=== PATIENT | male | born 1945 | race Caucasian/White ===

== ENCOUNTER 2021-01-20 11:05 | Emergency (ER) | payer MEDICARE ==
[2021-01-20] MEDS ORDERED: BUFFERED LIDOCAINE 10 ML SYRINGE SUBQ STA (11:53)
[2021-01-20] MEDS ORDERED: BUPIVACAINE 0.5% PF 10 ML VIAL SUBQ STA (11:54)
--- NOTE | 2021-01-20 12:22 | XRAY Report ---
PROCEDURE: Hand 3 View LT INDICATIONS: ? FB metalic TECHNIQUE: 3 views of the hand(s) acquired. COMPARISON: None FINDINGS: Bones: No fractures or dislocations. No suspicious bony lesions. Focal degenerative change is seen involving the carpometacarpal joint, with milder degenerative richardson es seen elsewhere. Soft tissues: At the site of clinical concern adjacent to the interphalangeal joint of the thumb, th ere is a linear metallic-appearing foreign body that measures up to 5 mm. Generalized soft tissue swe lling is seen. No suspicious soft tissue calcifications. IMPRESSION: 5 mm linear metallic appearing foreign body seen at the area of clinical concern adjacent to the inte rphalangeal joint of the thumb. Reviewed by: Martinez Alves MD on 01/20/2021 11:20 AM BRYANNA Approved by: Martinez Alves MD on 01/20/2021 11:20 AM BRYANNA Station ID: [id number]
--- NOTE | 2021-01-20 13:35 | ED Physician Documentation ---
PD HPI UPPER EXT INJURY - Stated complaint Stated Complaint: L HAND SWELLING - Chief complaint Chief Complaint: Ext Problem - History obtained from History obtained from: Patient - History of Present Illness Location: Left, Finger (thumb) Type of injury: Foreign body Where injury occurred: Work Timing - onset: How many days ago (3) Timing - duration: Days (3) Timing - details: Gradual onset, Still present Improved by: Rest Worsened by: Moving, Palpating Associated symptoms: Swelling Contributing factors: No: Anticoagulated Similar symptoms before: Diagnosis (FB) Recently seen: Not recently seen - Additonal information Additional information: 75-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 He has not had any drainage from the area and he is not able to see the foreign body. He has had a number of metallic foreign bodies in his hands previously. He usually does not have to go after them and he does not usually have any swelling associated with them. Today he has both swelling and pain without fever or lymphangitic streaking. Review of Systems Constitutional: denies: Fever Eyes: denies: Photophobia Ears: denies: Ear pain Nose: denies: Congestion Throat: denies: Sore throat Respiratory: denies: Cough GI: denies: Vomiting Skin: denies: Rash Musculoskeletal: reports: Extremity pain PD PAST MEDICAL HISTORY - Past Medical History Past Medical History: No - Past Surgical History Past Surgical History: Yes Ortho: Hip replacement, Knee replacement, Other - Present Medications Home Medications: Ambulatory Orders Medication Instructions Recorded Confirmed Hydrocodone/Acetaminophen 1 tab PO Q6HR PRN 01/20/21 01/20/21 [Hydrocodone-Acetamin 5-300 mg] Ibuprofen 500 mg PO BID PRN 01/20/21 01/20/21 Oxycodone HCl/Acetaminophen 1 - 2 each PO Q6H PRN #14 tablet 01/20/21 [Percocet 5-325 mg Tablet] cephALEXin [Keflex] 500 mg PO Q6H #28 cap 01/20/21 - Allergies Allergies/Adverse Reactions: Allergies Allergy/AdvReac Type Severity Reaction Status Date / Time No Known Drug Allergies Allergy Verified 01/20/21 11:20 - Social History Does the pt smoke?: No Smoking Status: Never smoker Does the pt drink ETOH?: No Does the pt have substance abuse?: No - Immunizations Immunizations are current?: No Immunizations: TDAP >10years/unknown PD ED PE NORMAL - Vitals Vital signs reviewed: Yes (hypertensive mild ) - General General: Alert and oriented X 3, No acute distress, Well developed/nourished - HEENT HEENT: Atraumatic, PERRL, EOMI - Respiratory Respiratory: No respiratory distress - Derm Derm: Normal color, Warm and dry, No rash - Extremities Extremities: Other (To the left thumb there is swelling over the pulp of the thumb especially near the base of the distal interphalangeal joint. There is an entrance wound to the ulnar aspect of the thumb over the IP joint. The area is calloused. 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, No motor deficit, No sensory deficit, Normal speech Eye Opening: Spontaneous Motor: Obeys Commands Verbal: Oriented GCS Score: 15 - Psych Psych: Normal mood, Normal affect Results - Vitals Vitals: Vital Signs - 24 hr 01/20/21 11:15 Temperature 36.2 C L Heart Rate 66 Respiratory 15 Rate Blood Pressure 131/75 H O2 Saturation 98 Oxygen O2 Source Room air - Rads (name of study) hand Radiology: Prelim report reviewed (Impression: 5 mm linear metallic appearing foreign body seen at the area of contact clinical concern adjacent to the interphalangeal joint of the thumb.), EMP read indepedently, See rad report Procedures - FB removal FB location: Subcutaneous FB removal preparation: Local anesthesia-specify (Digital block with 50-50 bupivacaine lidocaine) Removal method: Foreceps, Incision, Other (The area was initially explored with incision no foreign body was readily apparent and the area was then explored with C arm fluoroscopy. We were successful in removing the foreign body with the C arm fluoroscopy after multiple attempts.) FB removal aftercare: Patient tolerated well, Removed successfully PD MEDICAL DECISION MAKING - ED course Complexity details: reviewed results, re-evaluated patient, considered differential, d/w patient ED course: 75-year-old male presented to the emergency department with swelling to his left thumb. He suspected a metallic foreign body which was readily visible on plain film. Ultrasound of his thumb which was swollen over the pulp demonstrated what appeared to be hypoechoic areas consistent with fluid collection and this was explored with incision without drainage of pus. Attention was then turned to removal of the metallic foreign body as this was likely the cause of the patient's pain and swelling. This was not readily removable without the assistance of fluoroscopy. With the assistance of fluoroscopy we were able to remove this metallic foreign body. We will place patient on a course of antibiotic and have him follow-up with Ortho. Departure - Departure Disposition: 01 Home, Self Care Clinical Impression: Metal foreign body in left hand Condition: Stable Instructions: ED Foreign Body Soft Tissue Removed Follow-Up: RUBEN FALCON MD [Primary Care Provider] - Surjit Gloria MD [Provider Admit Priv/Credential] - Prescriptions: cephALEXin [Keflex] 500 mg PO Q6H #28 cap Oxycodone HCl/Acetaminophen [Percocet 5-325 mg Tablet] 1 - 2 each PO Q6H PRN #14 tablet PRN Reason: pain
[2021-01-20] MEDS ORDERED: TETANUS/DIPHTHERIA/PERTUSSIS 0.5 ML SYRINGE IM ONE (13:45)
--- NOTE | 2021-01-20 13:49 | XRAY Report ---
PROCEDURE: Fluoro Independent Procedure INDICATIONS: FB REMOVAL TECHNIQUE: A fluoroscopic image was obtained during an operative procedure and submitted for interpre tation following the completion of the procedure. COMPARISON: Correlation is made with hand plain films, 01/20/2021. FINDINGS: On this single intraoperative image, metallic forceps can be seen overlying the thumb foreign body. P lease correlate with intraoperative findings. IMPRESSION: Normal intraoperative study. Reviewed by: Martinez Alves MD on 01/20/2021 12:47 PM BRYANNA Approved by: Martinez Alves MD on 01/20/2021 12:47 PM BRYANNA Station ID: [id number]
[2021-01-20 14:03] VITALS: BP 152/82
== END 2021-01-20 14:04 | disposition home or self-care (01) ==
LOC: ED 11:05
DX: S60.552A Superficial foreign body of left hand, initial encounter (principal); W45.8XXA Other foreign body or object entering through skin, initial encounter; Y99.0 Civilian activity done for income or pay
CPT/HCPCS: 10120; 90471